=== PATIENT | male | born 1960 | race Caucasian/White ===

== ENCOUNTER 2024-12-08 09:00 | Inpatient (IN) | payer MEDICARE, MEDICAID, SELFPAY ==
[2024-12-08] VITALS (18 sets, daily range): BP systolic 90–144; BP diastolic 45–89; PULSE 88–113; RESP 7–20; TEMP 36.4–37.2; O2SAT 78–100; BMI 33.9
--- NOTE | ~2024-12-08 | CT_ITS ---
CLINICAL HISTORY: change mental status CT head without contrast Comparison: None provided Findings: No intra-axial mass, midline shift, hydrocephalus, or acute hemorrhage. No significant atrophy-like change or white matter disease. The visualized paranasal sinuses and mastoid air cells are normal. The orbits are unremarkable. No skull fracture. IMPRESSION: 1. No acute intracranial findings. This document has been electronically signed by: Hernan Villegas MD on 12/08/2024 11:46:09
--- NOTE | ~2024-12-08 | XR_ITS ---
CLINICAL HISTORY: change mental status 1 view chest x-ray Comparison: None provided Findings: Blunting of the right costophrenic angle is present. Low lung volumes. Normal size heart. No acute fracture. IMPRESSION: 1. Small right pleural effusion. This document has been electronically signed by: Hernan Villegas MD on 12/08/2024 11:29:01
--- NOTE | ~2024-12-08 | CT_ITS ---
CLINICAL HISTORY: unresponsive found on the ground CT cervical spine without contrast Comparison: None provided Findings: Vertebral alignment is within normal limits. Multilevel degenerative change, with multiple large anterior osteophytes. No acute fractures or dislocations. Visualized intracranial contents are unremarkable. There is soft tissue thickening anterior to C1 and C2 suspected to be related to enlarged adenoids. No apical pneumothorax. IMPRESSION: No acute fracture. Thickening of the prevertebral soft tissues at C1-2 which may be due to enlarged adenoids. This document has been electronically signed by: Hernan Villegas MD on 12/08/2024 12:05:56
--- NOTE | 2024-12-08 09:11 | ECG_ITS ---
Test Reason : ?OD Blood Pressure : */* mmHG Vent. Rate : 91 BPM Atrial Rate : 91 BPM P-R Int : 180 ms QRS Dur : 82 ms QT Int : 358 ms P-R-T Axes : 58 10 49 degrees QTcB Int : 440 ms Normal sinus rhythm Normal ECG No previous ECGs available Referred By: Cadence Sanchez Electronically Signed By: MINH LOMELI
[2024-12-08 09:37] LABS: MANUAL DIFF FLAG NO
--- NOTE | 2024-12-08 09:46 | ED_ITS ---
HPI - Altered Mental Status General Chief Complaint: Altered Mental Status Stated Complaint: ETOH Time Seen by Provider: 12/08/24 09:10 Source: EMS Mode of arrival: EMS Limitations: altered mental status History of Present Illness ED Provider: DR. Sanchez HPI narrative: This is a 64-year-old male brought in by EMS after was found face down on the ground next to his car in the street, as per EMS was alcohol smell on patient's smell at the scene patient is unresponsive, 2 mg of Narcan was administrated by EMS with no response patient was transported with stable vital sign to the ED, patient is unresponsive only to sternal rub open his eyes, no apparent external trauma noted, normal vital signs noted, +gag reflex able to protect his airway. Patient found to be in urine and stool incontinence. Related Data Allergies Allergy/AdvReac Type Severity Reaction Status Date / Time penicillin Allergy Hives Uncoded 12/08/24 15:51 Review of Systems 2 Review of Systems: Yes Unobtainable due to mental status PMFSH Past Medical History Medical History Alcohol abuse Social History Social History Advance Directives: No Advance Directives Information Provided: No Do you have a plan to hurt others: No Plan Physical Exam ED Vital Signs: Vital Signs - 24 hr 12/08/24 09:10 12/08/24 09:18 12/08/24 10:01 Temperature 97.5 F Pulse Rate 92 111 H Respiratory Rate 14 16 Blood Pressure 124/77 95/52 L Pulse Oximetry 78 L 94 95 Oxygen Delivery Method Room Air Room Air Nasal Cannula Oxygen Flow Rate 4 12/08/24 10:16 12/08/24 10:28 12/08/24 10:36 Temperature Pulse Rate 100 96 Respiratory Rate 12 12 Blood Pressure 96/48 L 90/51 L Pulse Oximetry 90 L 97 96 Oxygen Delivery Method Room Air Nasal Cannula Nasal Cannula Oxygen Flow Rate 4 12/08/24 10:56 12/08/24 11:37 12/08/24 11:56 Temperature 98.2 F Pulse Rate 103 H 102 H 107 H Respiratory Rate 7 L 10 L 12 Blood Pressure 99/45 L 129/85 144/78 H Pulse Oximetry 92 95 94 Oxygen Delivery Method Nasal Cannula Nasal Cannula Oxymask Oxygen Flow Rate 4 4 4 12/08/24 12:16 12/08/24 12:36 12/08/24 12:56 Temperature Pulse Rate 110 H 109 H 107 H Respiratory Rate 12 11 L 13 Blood Pressure 136/69 128/74 124/78 Pulse Oximetry 94 94 96 Oxygen Delivery Method Oxymask Oxymask Oxymask Oxygen Flow Rate 4 4 4 12/08/24 13:16 12/08/24 13:31 Temperature Pulse Rate 107 H 102 H Respiratory Rate 12 18 Blood Pressure 119/89 92/60 Pulse Oximetry 96 93 Oxygen Delivery Method Oxymask Nasal Cannula Oxygen Flow Rate 4 4 BMI result Body Mass Index 33.9 Vital signs have been reviewed and appear to be correct. Blood pressure elevated. Heart rate normal. Respiratory rate normal. Temperature normal. Oxygen saturation normal. Appearance: unresponsive, No acute distress. Head: Normal external exam. Normocephalic. Atraumatic. No Delacruz signs noted. No raccoon eyes noted Eyes: pupil 3 mm reactive bilaterally, PERRLA. EOMI. Conjunctiva and sclera normal. Eyelids normal. ENT: TM's Normal. Pharynx normal. Uvula midline. Moist mucous membranes. No trismus noted. No drooling noted. No muffled voice noted. Neck: Normal inspection. Neck supple. FROM. No adenopathy. Thyroid Normal. No meningeal signs. No neck mass noted. CVS: Normal heart rate and rhythm. Heart sound normal. No murmurs noted. Pulses normal throughout. Respiratory: No respiratory distress. Painless inspiration. Breath sounds normal. No wheezes/rales/rhonchi noted. Chest nontender. No accessory muscle usage noted or decreased air movement noted. Abdomen: Soft and nontender. Bowel sounds normal in all 4 quadrants. No distention noted. No organomegaly noted. No visible injury noted. Back: No CVA tenderness. Full range of motion noted. Skin: Skin warm and dry. Normal skin color. Normal skin turgor. No rashes/lesions/lacerations noted. Extremities: No lower extremity edema. Extremities exhibit normal range of motion. Extremities nontender. Neuro: only respond to painful stimuli. No apparent head injury. Course Reevaluation(s) Reevaluation #1: a 64-year-old male with no known past medical history brought in by EMS to the emergency department after was found in the street face down unresponsive, patient remained unresponsive for 4 hours in the emergency department only respond to painful stimuli, physical exam was limited secondary to change mental status, head CT was unremarkable, initially patient had stool and urine incontinence which could be attributed to seizure however patient is not aware of any past medical history of seizure, patient has no memory of what happened today. Patient now is AAO x3 able to carry on conversation, he has been complaining of right upper back pain for 2 weeks no significant history of trauma or injury. No history of smoking or lung issue. While patient was unresponsive he had couple episodes of hypoxia improved by waking the patient asking him to take a deep breath, patient was placed on nasal cannula. improved lactic acidosis could be attributed to seizure and postictal. No apparent source of infection patient initially received 1 dose of empirical ceftriaxone. Will admit for further neurological evaluation and rule out seizure. Time: 15:51 Medications Administered Discontinued Medications Generic Name Dose Route Start Last Admin Trade Name Faisalq PRN Reason Stop Dose Admin Ceftriaxone Sodium 1 gm 12/08/24 14:20 12/08/24 14:48 Ceftriaxone Sodium 1 Gm Vial IVPUSH 12/08/24 14:21 1 gm ONCE ONE Administration Lactated Ringer's 1,000 mls @ 999 mls/hr 12/08/24 10:15 12/08/24 12:15 Lr IV 12/08/24 11:15 Infused .Q1H1M JEFFERSON Infusion Naloxone HCl 2 mg 12/08/24 09:12 12/08/24 09:31 Naloxone Hcl 2 Mg/2 Ml Syringe IVPUSH 12/08/24 09:13 Not Given ONCE ONE Ondansetron HCl 4 mg 12/08/24 09:58 12/08/24 10:16 Ondansetron Hcl 4 Mg/2 Ml Vial IVPUSH 12/08/24 09:59 4 mg ONCE ONE Administration Medical Decision Making Differential Diagnosis Differential Diagnoses: The differential diagnosis associated with the presentation includes ( intracranial bleed, metabolic encephalopathy, electrolyte derangement, acute intoxication, undiagnosed seizure, severe anemia, pneumonia, pneumothorax, ACS, cervical spine injury.) Admission/Observation Consideration of admission/observation: Escalation of care including admission/observation considered Lab Data MDM Lab Attestation statement: I reviewed the patient's lab results. 12/08/24 09:33 12/08/24 09:33 Labs: Lab Results 12/08/24 12/08/24 12/08/24 Range/Units 09:33 09:34 10:24 WBC 5.6 (4.8-10.8) X10*3/uL RBC 5.09 (4.60-5.80) X10*6/uL Hgb 15.0 (14.0-18.0) g/dl Hct 44.3 (42.0-52.0) % MCV 87.0 (80.0-98.0) fL MCH 29.5 (27.0-33.0) pg MCHC 33.9 (31.0-36.0) g/dl RDW 13.5 (11.0-16.0) % Plt Count 247 (160-400) X10*3/uL MPV 8.7 L (9.4-12.4) fL Immature Gran % (Auto) 1.6 H (0.0-0.4) % Neut % (Auto) 74.8 H (45-73) % Lymph % (Auto) 17.8 L (20-40) % [place] % (Auto) 5.4 (2-11) % Eos % (Auto) 0.0 (0-4) % Baso % (Auto) 0.4 (0-2) % Lymph # (Auto) 1.0 L (1.2-4.9) X10*3/uL [place] # (Auto) 0.3 (0.1-1.2) X10*3/uL Eos # (Auto) 0.0 (0.0-0.4) X10*3/uL Baso # (Auto) 0.0 (0.0-0.2) X10*3/uL Abs Immat Gran (auto) 0.09 H (0.00-0.03) X10*3/uL Absolute Neuts (auto) 4.2 (2.0-8.3) x10*3/uL Absolute Nucleated RBC 0.000 (0.0-0.012) X10*3/uL Nucleated RBC % (auto) 0.0 (0.0-0.2) /100WBC O2 Saturation % ABG pH at Pt Temp (7.35-7.45) ABG pCO2 at Pt Temp (32-45) mmHg ABG pO2 at Pt Temp (83-108) mmHg ABG HCO3 (22-26) mmol/L ABG Base Excess (Actual) mmol/L Sodium 141 (135-145) mmol/L Potassium 4.3 (3.3-5.1) mmol/L Chloride 107 (96-108) mmol/L Carbon Dioxide 25 (22-29) mmol/L Anion Gap 13 (12-20) BUN 9 (9-16) mg/dL Creatinine 1.14 (0.5-1.4) mg/dL Estim Creat Clear Calc 77.3 Estimated GFR > 60 Random Glucose 193 H (60-115) mg/dL Lactic Acid (0.5-2.0) mmol/L Calcium 9.1 (8.4-10.2) mg/dL Total Bilirubin 0.6 (0.0-1.0) mg/dL Direct Bilirubin 0.2 (0.0-0.5) mg/dL AST 69 H (5-37) U/L ALT 101 H (0-40) U/L Alkaline Phosphatase 86 (39-117) U/L Ammonia (13-55) umol/L Troponin I High Sens < 2.7 (<3.5-35.0) ng/L B-Natriuretic Peptide < 10 (<100) pg/mL Total Protein 7.5 (6.5-8.0) g/dL Albumin 4.9 (3.5-5.0) g/dL Lipase 30 (8-78) U/L Urine Color Yellow Urine Appearance Clear Urine pH 5.5 (5.0-9.0) Ur Specific [place] 1.015 (1.005-1.025) Urine Protein 100 (2+) H (Neg-Trace) mg/dL Urine Glucose (UA) 250 H (Negative) mg/dL Urine Ketones Negative (Negative) mg/dL Urine Blood Trace H (Negative) Urine Nitrite Negative (Negative) Ur Leukocyte Esterase Negative (Negative) Urine RBC 3-5 H (0-2) /HPF Urine WBC 0-5 (0-5) /HPF Ur Squamous Epith Cells 0-2 (0-2) /HPF Urine Bacteria None Seen (None Seen) Hyaline Casts 0-2 (0-2) /LPF Salicylates < 5.0 L (15-30) mg/dL Urine Opiates Screen Not Detected (Not Detect) Ur Buprenorphine Scrn Not Detected (Not Detect) ng/mL Ur Oxycodone Screen Not Detected (Not Detect) ng/mL Urine Methadone Screen Not Detected (Not Detect) ng/mL Urine Fentanyl Screen Not Detected (Not Detect) Acetaminophen < 3 (<30) mcg/mL Ur Barbiturates Screen Not Detected (Not Detect) Ur Phencyclidine Scrn Not Detected (Not Detect) Ur Amphetamines Screen Not Detected (Not Detect) U Benzodiazepines Scrn Not Detected (Not Detect) Urine Cocaine Screen Not Detected (Not Detect) U Marijuana (THC) Screen Not Detected (Not Detect) Ethyl Alcohol 216 mg/dL 12/08/24 12/08/24 12/08/24 Range/Units 11:29 13:44 15:15 WBC (4.8-10.8) X10*3/uL RBC (4.60-5.80) X10*6/uL Hgb (14.0-18.0) g/dl Hct (42.0-52.0) % MCV (80.0-98.0) fL MCH (27.0-33.0) pg MCHC (31.0-36.0) g/dl RDW (11.0-16.0) % Plt Count (160-400) X10*3/uL MPV (9.4-12.4) fL Immature Gran % (Auto) (0.0-0.4) % Neut % (Auto) (45-73) % Lymph % (Auto) (20-40) % [place] % (Auto) (2-11) % Eos % (Auto) (0-4) % Baso % (Auto) (0-2) % Lymph # (Auto) (1.2-4.9) X10*3/uL [place] # (Auto) (0.1-1.2) X10*3/uL Eos # (Auto) (0.0-0.4) X10*3/uL Baso # (Auto) (0.0-0.2) X10*3/uL Abs Immat Gran (auto) (0.00-0.03) X10*3/uL Absolute Neuts (auto) (2.0-8.3) x10*3/uL Absolute Nucleated RBC (0.0-0.012) X10*3/uL Nucleated RBC % (auto) (0.0-0.2) /100WBC O2 Saturation 100.0 % ABG pH at Pt Temp 7.34 L (7.35-7.45) ABG pCO2 at Pt Temp 49 H (32-45) mmHg ABG pO2 at Pt Temp 131 H (83-108) mmHg ABG HCO3 27 H (22-26) mmol/L ABG Base Excess (Actual) 0.6 mmol/L Sodium (135-145) mmol/L Potassium (3.3-5.1) mmol/L Chloride (96-108) mmol/L Carbon Dioxide (22-29) mmol/L Anion Gap (12-20) BUN (9-16) mg/dL Creatinine (0.5-1.4) mg/dL Estim Creat Clear Calc Estimated GFR Random Glucose (60-115) mg/dL Lactic Acid 4.1 H* 2.4 H* (0.5-2.0) mmol/L Calcium (8.4-10.2) mg/dL Total Bilirubin (0.0-1.0) mg/dL Direct Bilirubin (0.0-0.5) mg/dL AST (5-37) U/L ALT (0-40) U/L Alkaline Phosphatase (39-117) U/L Ammonia 50 (13-55) umol/L Troponin I High Sens (<3.5-35.0) ng/L B-Natriuretic Peptide (<100) pg/mL Total Protein (6.5-8.0) g/dL Albumin (3.5-5.0) g/dL Lipase (8-78) U/L Urine Color Urine Appearance Urine pH (5.0-9.0) Ur Specific [place] (1.005-1.025) Urine Protein (Neg-Trace) mg/dL Urine Glucose (UA) (Negative) mg/dL Urine Ketones (Negative) mg/dL Urine Blood (Negative) Urine Nitrite (Negative) Ur Leukocyte Esterase (Negative) Urine RBC (0-2) /HPF Urine WBC (0-5) /HPF Ur Squamous Epith Cells (0-2) /HPF Urine Bacteria (None Seen) Hyaline Casts (0-2) /LPF Salicylates (15-30) mg/dL Urine Opiates Screen (Not Detect) Ur Buprenorphine Scrn (Not Detect) ng/mL Ur Oxycodone Screen (Not Detect) ng/mL Urine Methadone Screen (Not Detect) ng/mL Urine Fentanyl Screen (Not Detect) Acetaminophen (<30) mcg/mL Ur Barbiturates Screen (Not Detect) Ur Phencyclidine Scrn (Not Detect) Ur Amphetamines Screen (Not Detect) U Benzodiazepines Scrn (Not Detect) Urine Cocaine Screen (Not Detect) U Marijuana (THC) Screen (Not Detect) Ethyl Alcohol mg/dL Independent Interpretation I performed an independent interpretation of an: EKG ( normal sinus rhythm at 91 beats per minutes, normal intervals, normal axis deviation, no ST-T changes, no old EKG to compare.), Plain X-Ray ( chest: Right small pleural effusion) and CT Scan ( Head/cervical spine: No acute intracranial findings, no acute cervical spine fracture.) Radiology Impression Discussion of test interpretation with radiology: I have reviewed the radiologist's reading. Critical Care Time Critical Care Time Critical Care Time: Yes Total Critical Care Time: 60 Attestation: The patient was critically ill with a high probability of imminent or life- threatening deterioration. I spent greater than 30 minutes of discontinuous time evaluating the patient, delivering critical care at the bedside, discussing evaluating data with consultants. Critical care time does not include time spent performing separately billable procedures or teaching. Time spent performing critical care was 60 minutes. Discharge Plan Discharge Clinical Impression: Altered mental status, Episode of unresponsiveness Patient Disposition: Admitted As Inpatient
--- NOTE | 2024-12-08 09:55 | PC.NURSE ---
pt arrived via ems, only responding to deep painful stimulus-sternal rub by provider and this nurse. iv previously inserted by ems, labs drawn by tech, ekg performed, satellite project site monitor applied-nsr on moniter, pt vitals stable, rr equal/non labored- lungs diminished throughout, pt was incontinent of large amount of urine and stool, cxr performed, ct scan performed. plan of care ongoing
[2024-12-08 09:57] LABS: Alanine Aminotransferase 101 U/L (0-40); Albumin Level 4.9 g/dL (3.5-5.0); Alkaline Phosphatase 86 U/L (39-117); Anion Gap 13 (12-20); Aspartate Amino Transferase 69 U/L (5-37); Blood Urea Nitrogen 9 mg/dL (9-16); Calcium 9.1 mg/dL (8.4-10.2); Carbon Dioxide 25 mmol/L (22-29); Chloride 107 mmol/L (96-108); Creatinine Clr Calc Pharmacy 77.3; Estimated Glomerular Filt Rate > 60; Hematocrit 44.3 % (42.0-52.0); Hemoglobin 15.0 g/dl (14.0-18.0); Imm Gran Abs Auto 0.09 X10*3/uL (0.00-0.03); Imm Gran Pct Auto 1.6 % (0.0-0.4); Lipase 30 U/L (8-78); Lymphocytes Absolute Auto 1.0 X10*3/uL (1.2-4.9); Mean Corpuscular HGB Conc 33.9 g/dl (31.0-36.0); Mean Corpuscular Hemoglobin 29.5 pg (27.0-33.0); Mean Corpuscular Volume 87.0 fL (80.0-98.0); NRBC Abs Auto 0.000 X10*3/uL (0.0-0.012); NRBC Pct Auto 0.0 /100WBC (0.0-0.2); Platelet Count 247 X10*3/uL (160-400); Potassium 4.3 mmol/L (3.3-5.1); Red Blood Count 5.09 X10*6/uL (4.60-5.80); Sodium 141 mmol/L (135-145); Total Protein 7.5 g/dL (6.5-8.0); White Blood Count 5.6 X10*3/uL (4.8-10.8)
[2024-12-08 09:58] LABS: Acetaminophen LAB < 3 mcg/mL (<30); Salicylate < 5.0 mg/dL (15-30)
[2024-12-08 10:02] LABS: B Type Natriuretic Peptide < 10 pg/mL (<100)
[2024-12-08 10:04] LABS: Troponin-I High Sensitivity < 2.7 ng/L (<3.5-35.0)
[2024-12-08] MEDS: Lactated Ringers 1,000 ML 999 ML IV (10:16)
--- NOTE | 2024-12-08 10:28 | PC.NURSE ---
while this nurse was in the room hanging ivf and medicating the patient, pt began to desat- it was noted as if he had some apnic moments, pt was 78% on room air, this nurse sternal rubbed the patient and coached pt to take deep breaths through his nose which he did, 4L NC was applied and O2 sat increased to mid 90s, urine obtained and sent, plan of care ongoing
[2024-12-08 10:36] LABS: Appearance Urine Clear; Glucose Urine UA 250 mg/dL (Negative); PH 5.5 (5.0-9.0); Specific Gravity - Urine 1.015 (1.005-1.025); UMIC TRIGGER UACC YES
[2024-12-08 10:40] LABS: Cannabinoid Screen Urine Not Detected (Not Detect)
--- NOTE | 2024-12-08 11:40 | PC.NURSE ---
ivf continue to run slowly, pt is very difficult stick- additional labs were obtained by this nurse and the tech.
--- NOTE | 2024-12-08 11:41 | PC.NURSE ---
oxymask placed on patient as he is a mouth breather, O2 sat is 97% with oxymask
[2024-12-08 11:45] LABS: Ammonia 50 umol/L (13-55)
[2024-12-08 13:34] LABS: Reflex Lactate? Lactic Acid Added
--- NOTE | 2024-12-08 13:39 | PC.NURSE ---
this nurse noticed patients ETCO2 has increased, provider notified, ABG ordered and RT was called to perform
[2024-12-08 13:48] LABS: ABG HCO3 27 mmol/L (22-26); ABG O2 % Saturation 100.0 %
--- NOTE | 2024-12-08 14:50 | PC.NURSE ---
pt continues to sleep, bench assembler electrical sinus tach, pt medicated per order, call [facility] within reach, plan of care ongoing
--- NOTE | 2024-12-08 15:25 | P.HPHOSP_ITS ---
History of Present Illness Date of Service: 12/08/24 Chief Complaint: Syncope, altered mentation A 64 years old male with PMH of alcohol abuse not on any meds presenting to the emergency by EMS as he was found altered next to his care face down. The patient has no recollection of what happened but he recalls going to pool place to play and had few drinks of Vodka. He walked out to his car and the remote was not working so he was tapping on the window with it. this is the last thing he recalls. No chest pain, palpitations, SOB, nausea, vomiting, diarrhea or urinary symptoms. At time of EMS arrival he was incontinent to urine and stool, altered with no response to Narcan and smelling of Alcohol. In ED, U.Tox negative for drugs. Had Alcohol level of 216 (said he had few drinks last night). blood work showed Lactic acidosis and mild transaminitis. ABG showed elevated CO2 with minimal acidemia. Admitted for further evaluation and work up. Review of Systems 2 Review of Systems: No fever, chills or weakness No chest pain, palpitation No shortness of breath or coughing No abdominal pain, nausea or vomiting No urinary symptoms No any rash or wounds PMFSH Medical History Alcohol abuse Social History Patient Tobacco Use Status: Never used Tobacco Advance Directives: No Advance Directives Information Provided: No Do you have a plan to hurt others: No Plan Nutrition Risks: No Nutritional Risk Meds Allergies Allergy/AdvReac Type Severity Reaction Status Date / Time gluten Allergy Abdominal Verified 12/08/24 16:12 Pain penicillin Allergy Hives Uncoded 12/08/24 15:51 Home Medications ?Medication ?Instructions ?Recorded ?Confirmed ?Last Taken ?Type No Known Home Meds 12/08/24 12/08/24 Un known History Physical Exam 2 Vital Signs and Narrative: Vital Signs: Last Vital Signs Temp 98.2 F 12/08/24 11:56 Pulse 102 H 12/08/24 13:31 Resp 18 12/08/24 13:31 BP 92/60 12/08/24 13:31 Pulse Ox 93 12/08/24 13:31 O2 Del Method Nasal Cannula 12/08/24 13:31 O2 Flow Rate 4 12/08/24 13:31 BMI result Body Mass Index 33.9 Const: Other: Constitutional : Awake, interactive, not in distress Neck : Normal inspection, Supple Cardiovascular : RRR, no JVP, no lower extremity edema Respiratory : good bilateral air entry, no crackles, wheezes or rhonchi Gastrointestinal: soft, lax, Normal bowel sounds, Non tender Skin : Warm, Dry Neurological : Alert & oriented x3, No focal deficit , CN 2-12 within normal Results Labs 12/08/24 09:33 12/08/24 09:33 Labs: Laboratory Results - last 24 hr 12/08/24 12/08/24 12/08/24 09:33 09:34 10:24 MCV 87.0 MCH 29.5 MCHC 33.9 RDW 13.5 Plt Count 247 MPV 8.7 L Immature Gran % (Auto) 1.6 H Neut % (Auto) 74.8 H Lymph % (Auto) 17.8 L [place] % (Auto) 5.4 Eos % (Auto) 0.0 Baso % (Auto) 0.4 Lymph # (Auto) 1.0 L [place] # (Auto) 0.3 Eos # (Auto) 0.0 Baso # (Auto) 0.0 Abs Immat Gran (auto) 0.09 H Absolute Neuts (auto) 4.2 Absolute Nucleated RBC 0.000 Nucleated RBC % (auto) 0.0 O2 Saturation ABG pH at Pt Temp ABG pCO2 at Pt Temp ABG pO2 at Pt Temp ABG HCO3 ABG Base Excess (Actual) Anion Gap 13 Estim Creat Clear Calc 77.3 Estimated GFR > 60 Random Glucose 193 H Lactic Acid Calcium 9.1 Total Bilirubin 0.6 Direct Bilirubin 0.2 AST 69 H ALT 101 H Alkaline Phosphatase 86 Ammonia Troponin I High Sens < 2.7 B-Natriuretic Peptide < 10 Total Protein 7.5 Albumin 4.9 Lipase 30 Urine Color Yellow Urine Appearance Clear Urine pH 5.5 Ur Specific [place] 1.015 Urine Protein 100 (2+) H Urine Glucose (UA) 250 H Urine Ketones Negative Urine Blood Trace H Urine Nitrite Negative Ur Leukocyte Esterase Negative Urine RBC 3-5 H Urine WBC 0-5 Ur Squamous Epith Cells 0-2 Urine Bacteria None Seen Hyaline Casts 0-2 Salicylates < 5.0 L Urine Opiates Screen Not Detected Ur Buprenorphine Scrn Not Detected Ur Oxycodone Screen Not Detected Urine Methadone Screen Not Detected Urine Fentanyl Screen Not Detected Acetaminophen < 3 Ur Barbiturates Screen Not Detected Ur Phencyclidine Scrn Not Detected Ur Amphetamines Screen Not Detected U Benzodiazepines Scrn Not Detected Urine Cocaine Screen Not Detected U Marijuana (THC) Screen Not Detected Ethyl Alcohol 216 12/08/24 12/08/24 11:29 13:44 MCV MCH MCHC RDW Plt Count MPV Immature Gran % (Auto) Neut % (Auto) Lymph % (Auto) [place] % (Auto) Eos % (Auto) Baso % (Auto) Lymph # (Auto) [place] # (Auto) Eos # (Auto) Baso # (Auto) Abs Immat Gran (auto) Absolute Neuts (auto) Absolute Nucleated RBC Nucleated RBC % (auto) O2 Saturation 100.0 ABG pH at Pt Temp 7.34 L ABG pCO2 at Pt Temp 49 H ABG pO2 at Pt Temp 131 H ABG HCO3 27 H ABG Base Excess (Actual) 0.6 Anion Gap Estim Creat Clear Calc Estimated GFR Random Glucose Lactic Acid 4.1 H* Calcium Total Bilirubin Direct Bilirubin AST ALT Alkaline Phosphatase Ammonia 50 Troponin I High Sens B-Natriuretic Peptide Total Protein Albumin Lipase Urine Color Urine Appearance Urine pH Ur Specific [place] Urine Protein Urine Glucose (UA) Urine Ketones Urine Blood Urine Nitrite Ur Leukocyte Esterase Urine RBC Urine WBC Ur Squamous Epith Cells Urine Bacteria Hyaline Casts Salicylates Urine Opiates Screen Ur Buprenorphine Scrn Ur Oxycodone Screen Urine Methadone Screen Urine Fentanyl Screen Acetaminophen Ur Barbiturates Screen Ur Phencyclidine Scrn Ur Amphetamines Screen U Benzodiazepines Scrn Urine Cocaine Screen U Marijuana (THC) Screen Ethyl Alcohol Assessment and Plan (1) Alcohol abuse: Status: Acute (2) Transaminitis: Status: Acute (3) Acute lactic acidosis: Status: Acute (4) Syncope and collapse: Status: Acute Plan A 64 years old male with PMH of alcohol abuse not on any meds presenting to the emergency by EMS as he was found altered next to his care face down. Syncope and collapse unclear incident, no witnesses, unclear if he syncopised or fell from being drunk vs had a seizure event ? CT head negative for any acute findings Aspiration precautions monitor on Tele EEG Seizure precautions Alcohol abuse with transaminitis potential withdrawal, keep on CIWA Thiamine, Folic acid replacement follow LFT Advised abstinence addiction team eval Acute lactic acidosis likely due to liver injury and alcoholism rather than sepsis IVF and repeat trending down Hypotension BP soft of 90s/60s IVF for now monitor DVT PPx Lovenox Quality Stroke Does the patient have a stroke diagnosis?: No VTE Prior VTE?: No VTE Risk Level:: Medical - moderate - high VTE Device Contraindication: Treatment Not Indicated VTE Drug Contraindication: N/A - Med Ordered
--- OUTSIDE RECORDS SUMMARY | 2024-12-08 15:30 | XMS_ITS | Clinical Summary ---
Author Organization [facility] Address [address] [place] [address] Care Team Providers Care Aerial Photograph Interpreter Name Role Phone Marge Joe MD Primary Care Provider [phone] Surgical History Surgery Date Site/Laterality Comments BACK SURGERY 2000 PROCEDURE: HISTORICAL BACK SURGERY; COMMENT: L4-5 LITHOTRIPSY 2011 PROCEDURE: HISTORICAL LITHOTRIPSY Family History Medical History Relation Name Comments Heart attack Father cause of , HTN, diabetes Arthritis Mother HTN, Diabetes Stroke Paternal Grandmother Relation Name Status Comments Father Mother Alive Paternal Grandmother Social History Tobacco Use Types Packs/Day Years Used Date Smoking Tobacco: Never Smokeless Tobacco: Never Alcohol Use Standard Drinks/Week Comments No 0 (1 standard drink = 0.6 oz pur e alcohol) Sex and Gender Information Value Date Recorded Sex Assigned at Not on file Legal Sex Male 10:47 PM EST Gender Identity Not on file Sexual Orientation Not on file Obstetrics History Last Filed Vital Signs Vital Sign Reading Time Taken Comments Blood Pressure 134/88 11/24/2022 4:11 PM EDT Pulse 104 11/24/2022 4:11 PM EDT Temperature - - Respiratory Rate - - Oxygen Saturation - - Inhaled Oxygen Concentration - - Weight 88.5 kg (195 lb) 10/19/2021 8:45 AM EDT Height 154.9 cm (5' 1 ) 10/19/2021 8:45 AM EDT Body Mass Index 36.84 10/19/2021 8:45 AM EDT Plan of Treatment Health Maintenance Due Date Last Done Comments DTaP,Tdap,and Td Vaccines (1 - Tdap) 1981 Pneumococcal Vaccine: 50+ Years (1 of 1 - PCV) 2012 Zoster Vaccines (1 of 2) 2012 Cholesterol Screening (Lipid Panel) 05/15/2022 Colorectal Cancer Screening: Colonoscopy 05/15/2022 Depression Screening 05/15/2022 HIV Screening 05/15/2022 Hepatitis C Screening 05/15/2022 Medicare Annual Wellness Visit 05/15/2022 Social Influencers of Health Screening 05/15/2022 COVID-19 Vaccine (3 - 2023-2 5 season) 2024 11/14/2020, 10/24/2020 Influenza Vaccine (Season Ended) 2025 03/24/2021 RSV Immunization Adult Patients (1 - 1-dose 75+ series) 2037 HIB Vaccines Aged Out No longer eligi ble based on patient's age to complete this topic HPV Vaccines Aged Out No longer eligi ble based on patient's age to complete this topic Hepatitis A Vaccines Aged Out No long er eligible based on patient's age to complete this topic Hepatitis B Vaccines Aged Out No long er eligible based on patient's age to complete this topic IPV Vaccines Aged Out No longer eligi ble based on patient's age to complete this topic MMR Vaccines Aged Out No longer eligi ble based on patient's age to complete this topic Meningococcal ACWY Vaccine Aged Out N o longer eligible based on patient's age to complete this topic Meningococcal B Vaccine Aged Out No l onger eligible based on patient's age to complete this topic Pneumococcal Vaccine: Pediatrics (0 to 5 Years) and At-Risk Patients (6 to 64 Years) Aged Out No longer eligible b ased on patient's age to complete this topic RSV Immunization Patients Under 20 months Aged Out No longer eligible b ased on patient's age to complete this topic Varicella Vaccines Aged Out No longer eligible based on patient's age to complete this topic Care Teams Aerial Photograph Interpreter Relationship Specialty Start Date End Date Marge Joe MD PCP - General Internal Medicine 12/04/18
--- NOTE | 2024-12-08 16:11 | PHA.MEDREC ---
Pharmacy Consult ? Medication Reconciliation Pharmacy has completed the medication reconciliation. Patient states he takes nothing at home including OTC meds
[2024-12-08] MEDS: 0.9 % Sodium Chloride Flush 3 ML SYRINGE IVFLUSH (16:29)
[2024-12-08] MEDS: Lactated Ringers 1,000 ML 100 ML IVCONT (16:30)
--- NOTE | 2024-12-08 16:34 | PC.NURSE ---
pt currently a&ox3, pt states he hasnt drank in over 10 years, refusing any help with drinking at this time, vitals currently stable, pt states he doesnt smoke or use any drugs, pt medicated per order, call [facility] within reach, plan of care ongoing.
[2024-12-08 17:18] LABS: Reflex Lactate? Lactic Acid Added
[2024-12-08 18:19] LABS: ~Lactic Acid-LAB USE ONLY 2.9 mmol/L (0.5-2.0)
[2024-12-08 18:24] LABS: Cancel Lactic Acid Canceled
--- NOTE | 2024-12-08 19:18 | PC.NURSE ---
sisters number maria guadalupe shadi [phone]
[2024-12-09] VITALS (8 sets, daily range): BP systolic 117–166; BP diastolic 71–103; PULSE 85–117; RESP 12–20; TEMP 36.6–37.4; O2SAT 93–96; BMI 35.2
--- NOTE | 2024-12-09 | EEG_ITS ---
This is a 16 channel EEG with an EKG lead. The patient is reported awake during the tracing. Background EEG rhythm is 10-12 hertz low to medium amplitude posteriorly, lower amplitude fast anteriorly. Patient transitioned into drowsiness with no significant abnormality. Photic stimulation does not produce any significant driving. Hyperventilation is not performed. Cardiac lead does not reveal any significant abnormality. No sharp wave, spikes, or paroxysmal tendency noted. IMPRESSION: No significant abnormality noted on this EEG. MD JEAN CLAUDE Starr/PEACE / [id number]
--- NOTE | 2024-12-09 00:40 | PC.NURSE ---
pt resting comfortably with eyes closed, breathing even and unlabored, O2 78% on RA. pt denies sleep apnea. placed pt on 3L oxymask for sleep
[2024-12-09] MEDS: Lactated Ringers 1,000 ML 100 ML IVCONT ×3 (02:52→20:31)
[2024-12-09 05:09] LABS: MANUAL DIFF FLAG NO
[2024-12-09 05:11] LABS: Hematocrit 38.8 % (42.0-52.0); Hemoglobin 12.8 g/dl (14.0-18.0); Imm Gran Abs Auto 0.07 X10*3/uL (0.00-0.03); Imm Gran Pct Auto 0.6 % (0.0-0.4); Lymphocytes Absolute Auto 1.9 X10*3/uL (1.2-4.9); Mean Corpuscular HGB Conc 33.0 g/dl (31.0-36.0); Mean Corpuscular Hemoglobin 29.0 pg (27.0-33.0); Mean Corpuscular Volume 88.0 fL (80.0-98.0); NRBC Abs Auto 0.000 X10*3/uL (0.0-0.012); NRBC Pct Auto 0.0 /100WBC (0.0-0.2); Platelet Count 243 X10*3/uL (160-400); Red Blood Count 4.41 X10*6/uL (4.60-5.80); White Blood Count 11.1 X10*3/uL (4.8-10.8)
[2024-12-09 05:24] LABS: Alanine Aminotransferase 107 U/L (0-40); Albumin Level 4.0 g/dL (3.5-5.0); Alkaline Phosphatase 72 U/L (39-117); Anion Gap 13 (12-20); Aspartate Amino Transferase 93 U/L (5-37); Blood Urea Nitrogen 11 mg/dL (9-16); Calcium 8.6 mg/dL (8.4-10.2); Carbon Dioxide 26 mmol/L (22-29); Chloride 108 mmol/L (96-108); Creatinine Clr Calc Pharmacy 82.4; Estimated Glomerular Filt Rate > 60; Potassium 4.2 mmol/L (3.3-5.1); Sodium 143 mmol/L (135-145); Total Protein 6.2 g/dL (6.5-8.0)
--- NOTE | 2024-12-09 07:52 | PC.NURSE ---
Resumed care of pt at 0700, he is resting in bed comfortably, he is A/Ox4, denies all pain at this time. Pt sat up and given breakfast, oxymask removed at this time. IVF running per order, IV resecurde at this time. Pt encouraged to start to get up and ambulate for the BR vs the male purewic now that he is alert and able to move around safely, pt in agreement with plan, at this time awaiting bed assignment.
--- NOTE | 2024-12-09 09:31 | PC.NURSE ---
Pt able to stand at bedside to use urinal. Pt did removed hand IV on accident, IV replaced in L AC, tolerated well.
--- NOTE | 2024-12-09 13:34 | P.PNIM_ITS ---
Subjective Subjective Date of Service: 12/10/24 Review of Systems Follow up syncope Physical Exam 2 Vital Signs: Vital Signs: Last Vital Signs Temp 98.1 F 12/09/24 11:16 Pulse 102 H 12/09/24 11:16 Resp 20 12/09/24 11:16 BP 155/103 H 12/09/24 11:16 Pulse Ox 94 12/09/24 11:16 O2 Del Method Room Air 12/09/24 11:16 O2 Flow Rate 2 12/09/24 07:17 BMI result Body Mass Index 33.9 Objective Data Active Medications Acetaminophen (Acetaminophen 325 Mg Tablet) 650 mg PO Q6H PRN PRN Reason: Pain, Mild 1-3,fever,headache Calcium Carbonate (Calcium Carbonate 750 Mg Tab.Chew) 750 mg PO Q4H PRN PRN Reason: Heartburn Enoxaparin Sodium (Enoxaparin Sodium 40 Mg/0.4 Ml Syringe) 40 mg SUBCUT Q24H [facility] Last Admin: 12/08/24 16:30 Dose: 40 mg Documented By: RENETTA Lactated Ringer's (Lr) 1,000 mls @ 100 mls/hr IVCONT .Q10H [facility] Last Admin: 12/09/24 12:56 Dose: 100 mls/hr Documented By: LEYDI Magnesium Hydroxide (Milk Of Magnesia 30 Ml Oral.Susp) 30 ml PO DAILY PRN PRN Reason: Constipation Melatonin (Melatonin 3 Mg Tablet) 6 mg PO BEDTIME PRN PRN Reason: Insomnia Ondansetron HCl (Ondansetron Hcl 4 Mg/2 Ml Vial) 4 mg IVPUSH Q8H PRN PRN Reason: Nausea and Vomiting Sodium Chloride (0.9 % Sodium Chloride Flush 3 Ml Syringe) 3 ml IVFLUSH QSHIFT [facility] Last Admin: 12/09/24 07:15 Dose: Not Given Documented By: LEYDI Non-Admin Reason: IV Running Labs 12/09/24 04:22 12/09/24 04:22 Labs: Laboratory Results - last 24 hr 12/08/24 12/08/24 12/08/24 13:44 15:15 17:50 MCV MCH MCHC RDW Plt Count MPV Immature Gran % (Auto) Neut % (Auto) Lymph % (Auto) [place] % (Auto) Eos % (Auto) Baso % (Auto) Lymph # (Auto) [place] # (Auto) Eos # (Auto) Baso # (Auto) Abs Immat Gran (auto) Absolute Neuts (auto) Absolute Nucleated RBC Nucleated RBC % (auto) O2 Saturation 100.0 ABG pH at Pt Temp 7.34 L ABG pCO2 at Pt Temp 49 H ABG pO2 at Pt Temp 131 H ABG HCO3 27 H ABG Base Excess (Actual) 0.6 Anion Gap Estim Creat Clear Calc Estimated GFR Random Glucose Lactic Acid 2.4 H* Lactic Acid F/U @ 2Hr 2.9 H* Calcium Total Bilirubin AST ALT Alkaline Phosphatase Total Protein Albumin 12/09/24 04:22 MCV 88.0 MCH 29.0 MCHC 33.0 RDW 13.8 Plt Count 243 MPV 8.9 L Immature Gran % (Auto) 0.6 H Neut % (Auto) 71.6 Lymph % (Auto) 17.1 L [place] % (Auto) 9.7 Eos % (Auto) 0.7 Baso % (Auto) 0.3 Lymph # (Auto) 1.9 [place] # (Auto) 1.1 Eos # (Auto) 0.1 Baso # (Auto) 0.0 Abs Immat Gran (auto) 0.07 H Absolute Neuts (auto) 7.9 Absolute Nucleated RBC 0.000 Nucleated RBC % (auto) 0.0 O2 Saturation ABG pH at Pt Temp ABG pCO2 at Pt Temp ABG pO2 at Pt Temp ABG HCO3 ABG Base Excess (Actual) Anion Gap 13 Estim Creat Clear Calc 82.4 Estimated GFR > 60 Random Glucose 104 Lactic Acid Lactic Acid F/U @ 2Hr Calcium 8.6 Total Bilirubin 0.7 AST 93 H ALT 107 H Alkaline Phosphatase 72 Total Protein 6.2 L Albumin 4.0 Assessment and Plan (1) Alcohol abuse: Status: Acute Plan A 64 years old male with PMH of alcohol abuse not on any meds presenting to the emergency by EMS as he was found altered next to his care face down. Syncope and collapse unclear incident, no witnesses, unclear if he syncopised or fell from being drunk vs had a seizure event ? CT head negative for any acute findings Aspiration precautions monitor on Tele EEG Seizure precautions Alcohol abuse with transaminitis potential withdrawal, keep on CIWA Thiamine, Folic acid replacement follow LFT Advised abstinence addiction team eval Acute lactic acidosis likely due to liver injury and alcoholism rather than sepsis IVF Hypotension. Resolved BP soft of 90s/60s IVF monitor DVT PPx Lovenox Quality Stroke Does the patient have a stroke diagnosis?: No VTE Prior VTE?: No VTE Risk Level:: Medical - moderate - high VTE Device Contraindication: Treatment Not Indicated VTE Drug Contraindication: N/A - Med Ordered
--- NOTE | 2024-12-09 15:16 | MHC.CM.PN ---
IMM 12/09/24, Pt. has a PCP in [facility], he cannot recall the name or address, he said he will find out and let us know. HCP discussed, he declined to complete form. Pt does not use home health services or DME. He is able to arrange transport home at [place], DCP: home, self care, CM to follow for DC needs.
[2024-12-10 03:58] VITALS: BP 132/74; PULSE 79; RESP 16; TEMP 36.6; O2SAT 98
[2024-12-10] MEDS: Lactated Ringers 1,000 ML 100 ML IVCONT (05:29)
[2024-12-10 07:13] VITALS: BP 172/90; PULSE 82; RESP 16; TEMP 36.8; O2SAT 100
[2024-12-10] MEDS: 0.9 % Sodium Chloride Flush 3 ML SYRINGE IVFLUSH (07:22)
--- NOTE | 2024-12-10 09:55 | PM.DS ---
DS: Providers Provider Date of Service: 12/10/24 Date of admission: 12/09/24 10:47 Date of discharge: 12/10/24 Primary care physician: Unknown Physician Consults: 12/08/24 15:23 Addiction Medicine Provider Routine Consulting Provider: Addiction Covering Reason for consultation: alcohol abuse DS: Diagnosis Discharge Diagnosis (1) Alcohol abuse: Status: Acute DS: Summary Hospital Course Hospital Course: A 64 years old male with PMH of alcohol abuse not on any meds presenting to the emergency by EMS as he was found altered next to his care face down. The patient has no recollection of what happened but he recalls going to pool place to play and had few drinks of Vodka. He walked out to his car and the remote was not working so he was tapping on the window with it. this is the last thing he recalls. No chest pain, palpitations, SOB, nausea, vomiting, diarrhea or urinary symptoms. At time of EMS arrival he was incontinent to urine and stool, altered with no response to Narcan and smelling of Alcohol. In ED, U.Tox negative for drugs. Had Alcohol level of 216 (said he had few drinks last night). blood work showed Lactic acidosis and mild transaminitis. ABG showed elevated CO2 with minimal acidemia. Admitted for further evaluation and work up. 64-year-old man admitted and treated for syncope and collapse. In the ED, CT head was negative. Patient had reported that he had been drinking that day and had not eaten much. It was a hot day outside also. His blood pressures on admission were low, he was treated with IV fluids. He was monitored on telemetry, no arrhythmia seen, he has remained in normal sinus rhythm. Patient has been able to ambulate with no dizziness and no further episodes of syncope. Seems more than likely that patient was dehydrated and became hypotensive after drinking alcohol and had this episode of syncope. Patient is to follow up with his primary care provider for any further episodes of this. Patient was noted to be hypertensive closer to discharge. He was started on lisinopril 2.5 mg daily. He is to check his blood pressures daily and document to share with his primary care provider for management of this medication. History of alcohol abuse. Patient denies heavy alcohol use. Mild transaminitis. No withdrawal symptoms during hospitalization. Acute lactic acidosis. Likely secondary to alcohol consumption Time Attestation Discharge Coordination Time (in mins): 42 Quality: Safe Use of Opioids Does Pt have an Active Cancer Diagnosis on the Problem List?: No Quality: Stroke Does the patient have a stroke diagnosis?: No Physical Exam Vital Signs: Vital Signs: Last Vital Signs Temp 98.2 F 12/10/24 07:13 Pulse 82 12/10/24 07:13 Resp 16 12/10/24 07:13 BP 172/90 H 12/10/24 07:13 Pulse Ox 100 12/10/24 07:13 O2 Del Method Room Air 12/10/24 07:13 O2 Flow Rate 2 12/10/24 03:58 BMI result Body Mass Index 35.2 Appearing in no acute distress head is normocephalic atraumatic eyes pupils are PERRLA sclera is anicteric mouth throat mucous membranes are intact and moist neck is supple no lymphadenopathy, no JVD noted lung sounds are clear to auscultation heart regular rate rhythm, clear S1, S2 positive bowel sounds, abdomen is soft, nontender neuro patient is alert x3, no focal deficits DS: Data Data Completed and Pending Labs on day of discharge: Preliminary micro results at discharge 12/08/24 11:29 Blood Culture - Preliminary Blood - Venous No growth after 24 hours. 12/08/24 11:29 Blood Culture - Preliminary Blood - Venous No growth after 24 hours. Discharge Plan Discharge Anticipated Discharge Date/Time: 12/10/24 09:47 Patient Disposition: Home, Self-Care Discharge Diagnosis: Syncope secondary to Hypotension Hypertension cough Discharge Medications: New benzonatate 100 mg capsule 100 mg PO BID PRN (Reason: cough) Qty: 10 0RF lisinopril 2.5 mg Tablet 2.5 mg PO DAILY Qty: 30 0RF Protocol: Hold for SBP< HOLD for SBP < : 90 (DME) blood pressure monitor [Blood Pressure Kit] Kit See Rx Instructions .Route Qty: 1 0RF Rx Instructions: As directed Discharge Orders: Discharge Order (Routine); Ordered 12/10/24 Ordered By: Minnie Calvo Diet: Advance to usual diet Activity on Discharge: As tolerated Stand Alone Forms: Patient Portal Discharge page Print Language: Upper Sorbian Care Plan Goals: Take benzonatate for cough drink plenty of fluids dont miss meals avoid alcohol Check blood pressure daily and document to share with primary care provider Health Concerns: Syncope secondary to hypotension Hypertension cough Plan of Treatment: Follow up with primary care provider as needed Take all medications as prescribed Assessment: Syncope likely secondary to orthostatic hypotension from dehydration
[2024-12-10 10:14] VITALS: BP 160/90
--- NOTE | 2024-12-10 10:35 | MHC.CM.PN ---
Pt has been medically cleared to [place], he will arrange a ride home, plan is self care.
[2024-12-10 11:17] VITALS: BP 164/72; PULSE 79; RESP 18; TEMP 36.9; O2SAT 100
== END 2024-12-10 12:04 | disposition home or self-care (01) | DRG 315 ==
LOC: HO.ED 15:28 → HO.EDOVER 15:30 → HO.IMC 12-09 12:29
PROVIDERS: Admitting Provider Student in an Organized Health Care Education/Training Program; Emergency Provider Emergency Medicine; Visit Provider Nurse Practitioner Acute Care
DX: I95.9 Hypotension, unspecified (principal); E87.21 Acute metabolic acidosis; Y90.7 Blood alcohol level of 200-239 mg/100 ml; I10 Essential (primary) hypertension; F10.20 Alcohol dependence, uncomplicated
CPT/HCPCS: 36415; 70450; 71045; 72125; 80048; 80053; 80076; 80143; 80179; 80307; 81001; 82140; 82803; 83605; 83690; 83880; 84484; 85025; 87040; 93005; 95816; 97161; 99222; 99285; J0696; J1650; J2405; J7120

== ENCOUNTER → 2024-12-08 09:11 | Outpatient (BNV) | payer MEDICAID, SELFPAY | PROVIDERS: Emergency Provider Emergency Medicine; Visit Provider Radiology Diagnostic Radiology | DX: F10.129 Alcohol abuse with intoxication, unspecified (principal); R41.82 Altered mental status, unspecified; J90 Pleural effusion, not elsewhere classified | CPT/HCPCS: 70450; 71045; 72125 ==

== ENCOUNTER → 2024-12-08 09:11 | Outpatient (BNV) | payer MEDICAID, SELFPAY | PROVIDERS: Emergency Provider Emergency Medicine; Visit Provider Internal Medicine | DX: Z13.6 Encounter for screening for cardiovascular disorders (principal) | CPT/HCPCS: 93010 ==

== ENCOUNTER → 2024-12-08 15:18 | Outpatient (BNV) | payer MEDICARE, MEDICAID, SELFPAY | PROVIDERS: Admitting Provider Student in an Organized Health Care Education/Training Program; Emergency Provider Emergency Medicine; Visit Provider Student in an Organized Health Care Education/Training Program | DX: R74.01 Elevation of levels of liver transaminase levels (principal); E87.21 Acute metabolic acidosis; R55 Syncope and collapse; F10.10 Alcohol abuse, uncomplicated | CPT/HCPCS: 99223 ==